=== PATIENT | male | born 1970 | race American Indian/Alaskan Native ===

== ENCOUNTER 2022-03-04 10:39 | Outpatient (CLI) | payer OTHER ==
--- NOTE | 2022-03-04 12:55 | XRay Report ---
XR spine cervical 2-3V INDICATION / CLINICAL INFORMATION: BACK PAIN. COMPARISON: None available. FINDINGS: BONES/JOINT(S): No acute fracture or subluxation. Moderate generalized spondylosis with large bridgin g anterior osteophytes at multiple levels. No focal bone erosions or focal osteopenia to suggest infl ammatory arthropathy. SOFT TISSUES: No significant abnormality. ADDITIONAL FINDINGS: None. Signer Name: Howard Zamora MD Signed: 03/04/2022 12:50 PM Workstation Name: [email or web address]
== END 2022-03-04 10:40 | disposition home or self-care (01) ==
LOC: XRAY 10:39
PROVIDERS: ATTEND Internal Medicine
DX: M47.812 Spondylosis without myelopathy or radiculopathy, cervical region (principal); M25.78 Osteophyte, vertebrae
CPT/HCPCS: 72040